=== PATIENT | male | born 2005 | race Caucasian/White ===

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

== ENCOUNTER 2024-03-21 11:21 | Emergency (ER) | payer OTHER ==
[2024-03-21 11:39] VITALS: BP 122/63; PULSE 100; RESP 19; TEMP 98.1; BMI 40.7
[2024-03-21] MEDS: MECLIZINE HCL 25 MG TABLET (FP) PO ONE (12:19)
[2024-03-21] MEDS ORDERED: MECLIZINE HCL 25 MG TABLET (FP) ONE (12:19)
[2024-03-21 14:18] LABS: BASO % 0.3 % (0-2.0); EOS % 6.8 % (0-4.5); HEMATOCRIT 45.8 % (35.4-49); HEMOGLOBIN 15.4 GM/dL (11.7-16.9); LYMPH % 24.1 % (8-40); MCH 29.5 pg (25.7-33.7); MCHC 33.7 g/dl (32.0-35.9); MEAN CELL VOLUME 87.4 fl (80-96); MEAN PLT VOLUME 8.8 fl (7.5-11.1); MONO % 5.3 % (3.8-10.2); NEUT % 63.5 % (42.8-82.8); PLATELET COUNT 241 10^3/uL (134-434); RBC 5.23 M/mm3 (4.00-5.60); RDW 13.8 % (11.9-15.9); WHITE BLOOD COUNT 7.2 K/mm3 (4.0-10.0)
[2024-03-21] MEDS: METOCLOPRAMIDE HCL INJECTION 10 MG/2 ML VIAL IVPB ONE (14:21)
[2024-03-21] MEDS: SODIUM CHLORIDE 1,000 ML IV STA (14:21)
[2024-03-21] MEDS: ACETAMINOPHEN 1000 MG/100 ML BAG IVPB ONE (14:21)
[2024-03-21 14:41] LABS: POTASSIUM 4.2 mmol/L (3.5-5.1)
[2024-03-21 14:43] LABS: BLOOD UREA NITROGEN 12.7 mg/dL (7-18); CALCIUM 8.8 mg/dL (8.5-10.1)
[2024-03-21 14:46] LABS: CREATININE 0.7 mg/dL (0.55-1.3)
[2024-03-21 14:48] LABS: BILIRUBIN,TOTAL 0.5 mg/dL (0.2-1); TOT PROT 6.8 g/dl (6.4-8.2)
== END 2024-03-21 15:28 | disposition home or self-care (01) ==
LOC: JER 11:21
DX: S06.0X0A Concussion without loss of consciousness, initial encounter (principal); R26.81 Unsteadiness on feet; W01.0XXA Fall on same level from slipping, tripping and stumbling without subsequent striking against object, initial encounter
CPT/HCPCS: 36415; 70450-TC; 80053; 85025; 99284-25